=== PATIENT | female | born 1990 | race Caucasian/White ===

== ENCOUNTER → 2017-10-03 | Outpatient (CLI) | payer OTHER ==
--- NOTE | 2017-10-03 16:00 | MAMMOGRAPHY REPORT ---
ULTRASOUND OF BOTH BREASTS: 10/03/2017 CLINICAL HISTORY: The patient reports possible bilateral breast lumps. 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 COMPARISON: Prior ultrasound exam dated 01/01/2014. Findings: Real-time, high-resolution ultrasound was performed of the areas of possible lumps pointed out by the patient, in the right 9 to 10:00 breast laterally. No suspicious masses or other suspicio us sonographic abnormalities are evident in this region. In the right 6:00 breast, again noted is an oval circumscribed parallel hypoechoic mass which measures 1.7 x 0.7 x 1.1 cm. An echogenic biopsy marker clip is seen within the mass. The mass is not significantly changed compared to the December 10 exam and was previously biopsied and shown to represent a benign fibroadenoma. Targeted ultrasound was also performed of the area of the possible lumps pointed out by the patient i n the left 1:00 breast laterally. No suspicious masses or other suspicious sonographic abnormalities are evident in this region. Closer to the nipple in the left 1:00 breast, approximately 5 cm from t he nipple, there is an oval hypoechoic parallel circumscribed mass which measures 8 x 3 x 5 mm. This is probably benign and may represent a small fibroadenoma. Recommend follow-up targeted ultrasound in 6 months. IMPRESSION: ACR-BI-RADS CATEGORY 3: PROBABLY BENIGN 1. No suspicious sonographic abnormality at the site of the breast lumps in the right 9 to 10:00 asher ast. Recommend clinical follow-up. 2. Small hypoechoic circumscribed 8 mm mass in the left 1:00 breast. The mass is probably benign an d may represent a small fibroadenoma, especially given a biopsy-proven fibroadenoma in the right 6:00 breast. Recommend follow-up targeted ultrasound of the left breast in 6 months to confirm stability . A follow-up ultrasound in 6 months is recommended to demonstrate stability.(04/04/2018) The patient was verbally notified of the results. Aury Rose M.D. ah/:10/03/2017 10:51:38 Business Information Manager: RT Shira(Lance)(M), [facility] letter sent: Follow Up Recommended 3 BI-RADS Code: ACR-BI-RADS Category 3: Probably Benign
== END | disposition home or self-care (01) ==
LOC: C.MAMM 10:05
PROVIDERS: ATTEND Nurse Practitioner Obstetrics & Gynecology
DX: N63.20 Unspecified lump in the left breast, unspecified quadrant (principal); N63.10 Unspecified lump in the right breast, unspecified quadrant